=== PATIENT | male | born 1965 | race Caucasian/White ===

== ENCOUNTER 2017-03-02 14:38 | Emergency (ER) | payer BC ==
[~2017-03-02] VITALS: Ht 172.7 cm; Wt 96.0 kg
[2017-03-02 14:44] VITALS: Ht 172.7 cm; Wt 96.0 kg
[2017-03-02] MEDS ORDERED: ACETAMINOPHEN 500 MG TAB PO STA (14:59)
[2017-03-02] MEDS ORDERED: TRAMADOL HCL 50 MG TAB PO STA (14:59)
[2017-03-02] MEDS ORDERED: XYLOCAINE 1%/SOD BICARB 20 ML VIAL INFIL ONE (15:00)
[2017-03-02] MEDS ORDERED: DIPHTHERIA/TETANUS/PERTUSSIS 0.5 ML SYR/VIAL IM. ONE (15:00)
--- NOTE | 2017-03-02 16:00 | DIAGNOSTIC IMAGING REPORT ---
LUMBAR SPINE 5 VIEWS CLINICAL HISTORY: Low back pain. Fall from ladder. FINDINGS: 5 views of the lumbar spine are obtained. No prior studies are available for comparison at the time of dictation. The skeletal structures are well mineralized. There is no radiographic evidence of fracture or malalignment. Vertebral body height and alignment are maintained. The transverse and spinous processes are intact. There is no evidence of spondylolysis. The intervertebral disc spaces are well-maintained. Small anterior osteophytes are seen throughout. The visualized bony pelvis appears intact. There is a nonobstructed abdominal bowel gas pattern. Moderate colonic fecal retention is observed. IMPRESSION: No acute bony abnormality is seen involving the lumbosacral spine. Electronically signed by: Ayush Guillen M.D. 03/02/2017 3:42 PM Dictated Date/Time: 03/02/2017 3:40 PM
[2017-03-02] MEDS ORDERED: CYCL10TA6 PO (17:11)
[2017-03-02] MEDS ORDERED: TRAM-10 PO (17:11)
[2017-03-02 18:15] VITALS: TEMP 36.8
[2017-03-02 19:05] VITALS: BP 136/76; PULSE 60; O2SAT 99
[2017-03-02] MEDS ORDERED: TRAMADOL HCL 50 MG HOME PACK PO ONE (19:15)
[2017-03-02] MEDS ORDERED: FLEXERIL HOME PACK 10 MG VIAL PO ONE (19:15)
--- NOTE | 2017-03-02 19:58 | EMERGENCY ROOM VISIT NOTE ---
History First contact with patient: 14:49 Chief Complaint: FALL Stated Complaint: FALL History of Present Illness The patient is a 51 year old male who presents to the Emergency Room with complaints of spasms in his lower back and a right elbow laceration. The patient reports that he was standing on a ladder to move a tarp on the roof when the bottom of the ladder slipped on a slick deck, and the patient reports riding the ladder down to deck level. The patient denies any head injury, neck pain, upper back pain, chest pain, shortness of breath or abdominal pain. He also denies any other significant orthopedic injuries except for the laceration to his right elbow. The patient is uncertain of his last tetanus immunization. He rates his discomfort a 5 out of 10 on initial exam. Review of Systems 10 system review was performed and was negative except for pertinent positives and negatives as indicated in history of present illness Past Medical/Surgical History Medical Problems: (1) No significant past medical history Surgical Problems: (1) No history of previous surgery Family History FH: GI cancer Social History Smoking Status: Never Smoker Alcohol Use: occasionally Marital Status: Housing Status: lives with family Occupation Status: employed Current/Historical Medications Scheduled PRN Cyclobenzaprine Hcl (Flexeril), 10 MG PO TID PRN for spasm Tramadol (Ultram), 1 TAB PO Q4H PRN for Pain Physical Exam Vital Signs Date Time Temp Pulse Resp B/P (MAP) Pulse Ox O2 Delivery O2 Flow Rate FiO2 03/02/17 19:05 60 20 136/76 99 03/02/17 18:15 36.8 60 20 133/75 99 Room Air 03/02/17 16:15 66 20 130/75 99 Room Air 03/02/17 14:44 36.8 59 18 151/88 100 Room Air Physical Exam CONSTITUTIONAL: Healthy and well nourished. Alert and oriented X 3 with positive affect. GCS 15. The patient does not appear in any acute distress. HEENT: Normocephalic, atraumatic. Pupils equal, round and reactive. No epistaxis, subconjunctival hemorrhage, raccoon's eyes, hemotympanum or Oliver sign. NECK: Full active range of motion without discomfort. RESPIRATORY: Clear to auscultation bilaterally with no wheezing, crackles, rhonchi or stridor. Deep breathing does not cause any discomfort. CARDIOVASCULAR: Regular rate and rhythm with no murmurs, rubs or gallops. GASTROINTESTINAL: Bowel sounds present in all quadrants. Abdomen is soft and nontender to palpation. MUSCULOSKELETAL: Examination shows generalized minimal tenderness to palpation of the lumbar paraspinous muscles. No obvious spasm noted. The patient has no significant point tenderness to palpation through the central lumbar spine or SI joints. Negative logroll. Negative straight leg raise. Pelvis stable with rock. Ankle plantar/dorsiflexion strength is 5 out of 5 and symmetric bilaterally. Pedal pulses are intact. Examination shows several lacerations to the right posterior elbow. He otherwise has full flexion, extension, pronation and supination without discomfort. INTEGUMENTARY: No rash or other significant dermatologic conditions noted. NEUROLOGIC: Upper and lower extreme these are sensory intact. Medical Decision & Procedures ER Provider Diagnostic Interpretation: My interpretation of lumbar spine x-rays does not show any obvious fractures. Radiologist report is as follows: LUMBAR SPINE 5 VIEWS CLINICAL HISTORY: Low back pain. Fall from ladder. FINDINGS: 5 views of the lumbar spine are obtained. No prior studies are available for comparison at the time of dictation. The skeletal structures are well mineralized. There is no radiographic evidence of fracture or malalignment. Vertebral body height and alignment are maintained. The transverse and spinous processes are intact. There is no evidence of spondylolysis. The intervertebral disc spaces are well-maintained. Small anterior osteophytes are seen throughout. The visualized bony pelvis appears intact. There is a nonobstructed abdominal bowel gas pattern. Moderate colonic fecal retention is observed. IMPRESSION: No acute bony abnormality is seen involving the lumbosacral spine. Laboratory Results Urine dip is negative for hematuria. Medications Administered Medications (Trade) Dose Ordered Sig/Homero Route Start Time Stop Time Status Last Admin Dose Admin Acetaminophen (Tylenol Tab) 1,000 mg NOW STAT PO 03/02/17 14:59 03/02/17 15:00 DC 03/02/17 15:11 1,000 MG Tramadol HCl (Ultram Tab) 50 mg ONE STAT PO 03/02/17 14:59 03/02/17 15:00 DC 03/02/17 15:11 50 MG Diphtheria/ Pertussis/Tetanus Vacc (Adacel Inj) 0.5 ml ONCE ONCE IM. 03/02/17 15:00 03/02/17 15:01 DC 03/02/17 16:55 0.5 ML Lidocaine HCl (Buffered Lidocaine 1% Inj) 20 ml ONE ONCE INFIL 03/02/17 15:00 03/02/17 15:01 DC 03/02/17 15:12 20 ML Tramadol HCl (Ultram Home Pack) 1 homepack UD ONCE PO 03/02/17 19:15 03/02/17 19:16 DC 03/02/17 19:12 1 HOMEPACK Cyclobenzaprine HCl (FLEXERIL 10MG Home Pack) 1 homepack UD ONCE PO 03/02/17 19:15 03/02/17 19:16 DC 03/02/17 19:12 1 HOMEPACK Procedure Right elbow laceration repair was performed under local anesthesia after receiving verbal consent from the patient. Using buffered 1% lidocaine without epinephrine, good local anesthesia was administered. Peripheral tissue was then cleansed with iodine, then the wounds were copiously pressure irrigated with approximately 200 mL of normal saline. The wounds were then approximated using 4-0 nylon simple sutures. A bacitracin dressing was applied. Total repaired laceration length was 5.5 cm. ED Course Patient history and physical exam were performed. Nurse's notes were reviewed. Vital signs were reviewed and normal. The patient appeared in moderate discomfort from pain, but refused any parenteral analgesics. He was administered Tylenol and Ultram for pain. X-rays of the lumbar spine were normal. Right elbow laceration repair was performed under local anesthesia. Urine dip was negative for hematuria. The patient reports notable relief of his discomfort with the Tylenol and tramadol. Complained of tightness/spasms of the muscles in his back. He refused any muscle relaxers while in the emergency department. The patient will be prescribed Flexeril and Ultram, and encouraged to alternate ibuprofen and Tylenol for baseline pain relief. I did encourage him to follow-up with his PCP for reevaluation in the next 2-3 days, returning to the emergency department for any other developing concerning symptoms. The patient was happy with plan of care, voiced understanding of all discharge instructions, and rated his pain a 3 out of 10 at the time of discharge. Medical Decision Head Trauma GCS Score: 15 Medication Reconcilliation Current Medication List: was personally reviewed by me Blood Pressure Screening Patient's blood pressure: Normal blood pressure Impression Primary Impression: Acute lumbar myofascial strain Additional Impressions: Laceration of right elbow Fall on/from ladder Departure Information Prescriptions Cyclobenzaprine Hcl (FLEXERIL) 10 Mg Tab 10 MG PO TID Y for spasm, #15 TAB Prov: Alejandro Hendrix PA 03/02/17 Tramadol (Ultram) 50 Mg Tab 1 TAB PO Q4H Y for Pain, #20 TAB For Initial Treatment Prov: Alejandro Hendrix PA 03/02/17 Referrals No Doctor, Assigned (PCP) Patient Instructions [facility] Problem Qualifiers Primary Impression: Acute lumbar myofascial strain Encounter type: initial encounter Qualified Codes: S39.012A - Strain of muscle, fascia and tendon of lower back, initial encounter Additional Impressions: Laceration of right elbow Encounter type: initial encounter Qualified Codes: S51.011A - Laceration without foreign body of right elbow, initial encounter Fall on/from ladder Encounter type: initial encounter Qualified Codes: W11.XXXA - Fall on and from ladder, initial encounter
== END 2017-03-02 19:40 | disposition home or self-care (01) ==
LOC: EDBD 14:38 → C.EDB 14:39
DX: S39.012A Strain of muscle, fascia and tendon of lower back, initial encounter (principal); S51.011A Laceration without foreign body of right elbow, initial encounter; W11.XXXA Fall on and from ladder, initial encounter; Z80.0 Family history of malignant neoplasm of digestive organs; Z23 Encounter for immunization

== ENCOUNTER → 2017-07-16 | Day surgery (SDC) | payer BC ==
[2017-07-06 12:31] VITALS: Ht 172.7 cm; Wt 102.3 kg
[~2017-07-16] VITALS: Ht 172.7 cm; Wt 102.3 kg
[~2017-07-16] MED LIST: ASPI81TA28 PO; CLR10 PO; LIDOCAINE HCL 2% 2 ML VIAL (20MG/ML) ONE; PROPOFOL IV EMULSION 10 MG/ML 20 ML VIAL IV ONE; SODIUM CHLORIDE 0.9% 500ML 500 ML IV ONE; SYMIN8045 INH; VGR50 PO
[2017-07-16 08:20] VITALS: TEMP 36.8
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
--- NOTE | 2017-07-16 08:54 | GI REPORT ---
Procedure Date: 07/16/2017 8:30 AM Procedure: Colonoscopy Indications: Screening for colorectal malignant neoplasm Medicines: Monitored Anesthesia Care Complications: No immediate complications. Estimated Blood Loss: Estimated blood loss: none. Procedure: Pre-Anesthesia Assessment: - Prior to the procedure, a History and Physical was performed, and patient medications and allergies were reviewed. The patient's tolerance of previous anesthesia was also reviewed. The risks and benefits of the procedure and the sedation options and risks were discussed with the patient. All questions were answered, and informed consent was obtained. Prior Anticoagulants: The patient has taken aspirin, last dose was 4 days prior to procedure. ASA Grade Assessment: II - A patient with mild systemic disease. After reviewing the risks and benefits, the patient was deemed in satisfactory condition to undergo the procedure. After I obtained informed consent, the scope was passed under direct vision. Throughout the procedure, the patient's blood pressure, pulse, and oxygen saturations were monitored continuously. The Scope was introduced through the anus and advanced to the terminal ileum. The colonoscopy was performed without difficulty. The patient tolerated the procedure well. The quality of the bowel preparation was good. The terminal ileum, ileocecal valve, appendiceal orifice, and rectum were photographed. Findings: The perianal and digital rectal examinations were normal. Non-bleeding internal hemorrhoids were found during retroflexion. The hemorrhoids were small. Impression: - Non-bleeding internal hemorrhoids. - No specimens collected. Recommendation: - Resume previous diet. - Continue present medications. - Repeat colonoscopy in 10 years for surveillance. - Return to primary care physician as previously scheduled. David Dhaliwal, 07/16/2017 8:53:47 AM This report has been signed electronically. Note Initiated On: 07/16/2017 8:30 AM I attest to the content of the Intraoperative Record and orders documented therein, exceptions below
--- NOTE | 2017-07-16 08:55 | Discharge Instructions ---
Endoscopy Patient Instructions Date / Procedure(s) Performed Jul 16, 2017. Colonoscopy Allergy Information Coded Allergies: Ampicillin (Verified Allergy, Unknown, UNSURE OF RX, 07/06/17) Discharge Date / Findings Jul 16, 2017. Internal hemorrhoids Medication Instructions Restart Stopped Medication(s): OK to resume all medications today as prescribed Reported Home Medications Medications Dose Route/Sig Max Daily Dose Days Date Category Viagra (Sildenafil Citrate) 50 Mg Tab 50 Mg PO PRN 07/16/17 Reported Aspirin Ec (Aspirin) 81 Mg Tab 81 Mg PO DAILY PRN 07/16/17 Reported Claritin (Loratadine) 10 Mg Tab 10 Mg PO DAILY PRN 07/06/17 Reported Symbicort 80-4.5 Mcg/Act (Budesonide/Formoterol Fumarate) 60 Puffs/Inhaler Aero 2 Puff INH Q4 PRN 07/06/17 Reported Provider Instructions Activity Restrictions - No exercising or heavy lifting for 24 hours. - Do not drink alcohol the day of the procedure. - Do not drive a car or operate machinery until the day after the procedure. - Do not make any important decisions or sign important papers in 24 hours after the procedure. Following Day: - Return to full activity which may include returning to work/school. Diet Start your diet with liquids and light foods (jello, soup, juice, toast). Then eat your usual diet if not nauseated. Treatment For Common After Affects For mild abdominal pain, bloating, or excessive gas: - Rest - Eat lightly - Lie on right side Follow-Up Information Follow-up with Dr. Souleymane French as scheduled Anesthesia Information What You Should Know You have had a procedure that required some medicine to reduce anxiety and discomfort. This treatment is called moderate sedation. After receiving the treatment, you may be sleepy, but you will be able to breathe on your own. The effects of the treatment may last for several hours. Follow these instructions along with Activity/Diet recommendations noted above: * Do NOT do anything where dizziness or clumsiness would be dangerous. * Rest quietly at home today, then you can be up and about tomorrow. * Have a responsible person stay with you the rest of today. * You may have had an I.V. today. If so, you may take the dressing off later today. Recommendations Call your doctor if: * Trouble breathing * Continuous vomiting for more than 24 hours * Temperature above 101 degrees * Severe abdominal pain or bloating * Pain not relieved by pain medicine ordered * There is increased drainage or redness from any incision * A large amount of rectal bleeding greater than 2-3 tablespoons. (If you had a polyp/s removed or have hemorrhoids, a small amount of blood - from the rectum is to be expected.) * You have any unanswered questions or concerns. IN THE EVENT OF A SERIOUS EMERGENCY, GO TO THE NEAREST EMERGENCY ROOM Your discharge instructions were prepared by provider David Dhaliwal. Patient Instructions Signature Page Karlos Shearer Patient (or Guardian) Signature/Date: I have read and understand the instructions given to me by my caregivers. Caregiver/RN/Doctor Signature/Date: The above-named patient and/or guardian has received patient instructions on this date. + Original Patient Signature Page (only) stays with chart. Please make copy for patient.
--- NOTE | 2017-07-16 09:18 | Anesthesiology Progress Note ---
Anesthesia Post Op Note Date & Time Jul 16, 2017 at 09:18 Vital Signs Pain Intensity: 0 Vital Signs Past 12 Hours Date Time Temp Pulse Resp B/P (MAP) Pulse Ox O2 Delivery O2 Flow Rate FiO2 07/16/17 09:12 72 16 117/73 (88) 94 Room Air 07/16/17 09:02 77 20 111/62 (78) 95 Room Air 07/16/17 08:20 36.8 90 20 153/89 (110) 96 Room Air Notes Mental Status: alert / awake / arousable, participated in evaluation Pt Amnestic to Procedure: Yes Nausea / Vomiting: adequately controlled Pain: adequately controlled Airway Patency, RR, SpO2: stable & adequate BP & HR: stable & adequate Hydration State: stable & adequate Anesthetic Complications: no major complications apparent
[2017-07-16 09:27] VITALS: BP 112/84; PULSE 67; O2SAT 97
== END | disposition home or self-care (01) ==
LOC: C.GI 07:53
PROVIDERS: ATTEND Internal Medicine
DX: Z12.11 Encounter for screening for malignant neoplasm of colon (principal); K64.8 Other hemorrhoids; K21.9 Gastro-esophageal reflux disease without esophagitis; E66.9 Obesity, unspecified; Z98.890 Other specified postprocedural states; Z88.1 Allergy status to other antibiotic agents; Z80.0 Family history of malignant neoplasm of digestive organs; Z79.82 Long term (current) use of aspirin; Z68.34 Body mass index [BMI] 34.0-34.9, adult